=== PATIENT | male | born 1995 | race Caucasian/White ===

== ENCOUNTER 2019-04-26 18:25 | Emergency (ER) | payer OTHER ==
[2019-04-26] MEDS ORDERED: TETRACAINE HCL 0.5% OPH SOLN 4 ML OD ONE (18:45)
--- NOTE | 2019-04-26 18:49 | ER Document Report ---
ED Medical Screen (RME) - General Chief Complaint: Eye Injury Stated Complaint: EYE PAIN Time Seen by Provider: 04/26/19 18:41 Mode of Arrival: Ambulatory Information source: Patient Notes: 23-year-old male presented to ED for eye injury yesterday. He states he was on the lawnmower when it started raining so he jumped up the lawnmower and started using the weedeater. He states that we did throw a rock up and hit him in the left eye. He states he must of blink just as it hit because it bruised and cut the upper eyelid. He states it was bleeding pretty bad at the time. He states he has had pain and sensitivity to light and movement to the size since that incident. He states he took the contact lens out and then later on put another contact lens back in. Patient is alert oriented respirations regular unlabored speaking in full sentences. He does have a bruise and a laceration to the upper eyelid. He states this all happened about 430 yesterday afternoon. He states she has not been to a doctor today. He denies smoking but does chew tobacco drinks 2-3 times a week no drugs. I have greeted and performed a rapid initial assessment of this patient. A comprehensive ED assessment and evaluation of the patient, analysis of test results and completion of medical decision making process will be conducted by an additional ED providers. Physical Exam - Vital signs Vitals: Temp Pulse Resp BP Pulse Ox 98.7 F 76 16 136/79 H 100 04/26/19 18:41 04/26/19 18:41 04/26/19 18:41 04/26/19 18:41 04/26/19 18:41 Course - Vital Signs Vital signs: Temp Pulse Resp BP Pulse Ox 98.7 F 76 16 136/79 H 100 04/26/19 18:41 04/26/19 18:41 04/26/19 18:41 04/26/19 18:41 04/26/19 18:41
[2019-04-26] MEDS ORDERED: CIPROFLOXACIN HCL 0.3% OPH SOLN 2.5 ML OS ONE (19:56)
--- NOTE | 2019-04-26 20:02 | ER Document Report ---
ED General - General Chief Complaint: Eye Injury Stated Complaint: EYE PAIN Time Seen by Provider: 04/26/19 18:41 Primary Care Provider: SHERRI BOWDEN MD [ACTIVE STAFF] - Follow up tomorrow (call for appointment. ) Mode of Arrival: Ambulatory Notes: Patient is a 23-year-old male otherwise healthy that presents to the emergency department for chief complaint of left eye injury. Patient states that he was mowing the grass yesterday, and then started we whacking, and hit a rock with a weed [place], and he states that it hit him in the left eye, he was wearing contacts, he did close his eye, he had a superior eyelid laceration, that he treated with compression, ice, and turn the lights out was wearing sunglasses for the last 24 hours, but he still having some pain and some blurred vision and redness to his eyes so he decided come the emergency department to have this evaluated. He currently rates his pain as a 3 out of 10 describes as an aching sensation. It was being relieved with Motrin at home. He did put his contact back in however. He denies any headache associated with this, nausea, vomiting or abdominal pain. No other symptoms at this time. Past Medical History: Denies chronic medical conditions Past Surgical History: Denies major surgical history Social History: Denies current tobacco, alcohol or drug use. Family History: Reviewed and noncontributory for presenting illness Allergies: Reviewed, see documented allergy list. REVIEW OF SYSTEMS: Other than noted above, the 12 point review of systems was reviewed with the patient and were negative, all pertinent findings are included in the HPI. PHYSICAL EXAMINATION: Vital signs reviewed, nursing noted reviewed. GENERAL: Well-appearing, well-nourished and in no acute distress. HEAD: Atraumatic, normocephalic. EYES: The left eye is noted to have conjunctival injection, the right eye appears normal, the left contact was removed, fluorescein dye exam was performed, and is noted to have a corneal abrasion at the 3 o'clock position, that did extend over the pupil, this was visualized under both slit-lamp exam, and under magnified lens, negative Bakari's sign, after reviewing her slit-lamp, patient's intraocular pressures were obtained, and were 14 on the left, and 16 on the right There is noted to be a healing superficial laceration noted to the left upper lid, its noted to be midline, no active bleeding, and well approximated. ENT: nares patent, oropharynx clear without exudates. Moist mucous membranes. NECK: Normal range of motion, supple without lymphadenopathy LUNGS: Breath sounds clear to auscultation bilaterally and equal. No wheezes rales or rhonchi. HEART: Regular rate and rhythm without murmurs EXTREMITIES: Nontender, good range of motion, no pitting or edema. NEUROLOGICAL: No focal neurological deficits. Moves all extremities spontaneously Motor and sensory grossly intact on exam. PSYCH: Normal mood, normal affect. SKIN: Warm, Dry, normal turgor, no rashes or lesions noted on exposed skin - Related Data Allergies/Adverse Reactions: No Known Allergies Allergy (Verified 04/26/19 19:33) Past Medical History - General Information source: Patient - Social History Smoking Status: Never Smoker Frequency of alcohol use: Occasional Drug Abuse: None Family History: Reviewed & Not Pertinent Patient has suicidal ideation: No Patient has homicidal ideation: No Renal/ Medical History: Denies: Hx Peritoneal Dialysis Physical Exam - Vital signs Vitals: Temp Pulse Resp BP Pulse Ox 98.7 F 76 16 136/79 H 100 04/26/19 18:41 04/26/19 18:41 04/26/19 18:41 04/26/19 18:41 04/26/19 18:41 - HEENT Visual acuity- Right eye: 20/25 Visual acuity- Left eye: 20/50 Visual acuity- Both eyes: 20/25 Corrective lenses worn: Yes Course - Re-evaluation Re-evalutation: Patient seen and examined vital signs reviewed. Patient was evaluated and treated as appropriate for the patient's presenting symptoms and complaint, with consideration of any critical or life threatening conditions that may be associated with their obtained history and exam as noted above. Patient was treated with tetracaine eyedrop, and ciprofloxacin eyedrops The patient was re-evaluated and was stable, patient's eye was thoroughly examined, and was consistent with a corneal abrasion, that did extend over the pupil, explained the patient's blurred vision, he did not have any pain with extraocular eye movement, and it was intact. At this point will treat with ciprofloxacin eyedrops, and advised [id number] antipyretic medication and follow-up with ophthalmology which the patient was agreeable to Evaluation was most consistent with left corneal abrasion. Plan of care was discussed with the patient at this point, after careful consideration I feel that that patient can be discharged from the emergency department, the patient was educated treatments and reasons to return to the emergency department based on their presumed diagnosis as noted above, they were advised to followup with a primary care physician in 2-3 days. Patient was agreeable to plan of care. *Note is created using voice recognition software and may contain spelling, syntax or grammatical errors. - Vital Signs Vital signs: Temp Pulse Resp BP Pulse Ox 98.4 F 78 16 126/83 H 99 04/26/19 20:37 04/26/19 20:37 04/26/19 20:37 04/26/19 20:37 04/26/19 20:37 Discharge - Discharge Clinical Impression: Corneal abrasion Qualifiers: Encounter type: initial encounter Laterality: left Qualified Code(s): S05.02XA - Injury of conjunctiva and corneal abrasion without foreign body, left eye, initial encounter Condition: Stable Disposition: HOME, SELF-CARE Instructions: Corneal Abrasion ([facility]) Additional Instructions: Please use the antibiotic eyedrop, every 4 hours, for 7 days, please follow-up with the eye physician, listed with your paperwork, call for an appointment tomorrow, if your symptoms are worsening, pain is worsening, you if you notice more drainage from your eye, please return to the emergency department to be reevaluated. Referrals: SHERRI BOWDEN MD [ACTIVE STAFF] - Follow up tomorrow (call for appointment. )
[2019-04-26 20:39] VITALS: BP 126/83
== END 2019-04-26 20:37 | disposition home or self-care (01) ==
LOC: ER 18:25
DX: S05.02XA Injury of conjunctiva and corneal abrasion without foreign body, left eye, initial encounter (principal); W20.8XXA Other cause of strike by thrown, projected or falling object, initial encounter; Y93.H2 Activity, gardening and landscaping
CPT/HCPCS: J3490 ×2; 99283